=== PATIENT | male | born 1935 | race Caucasian/White ===

== ENCOUNTER → 2019-11-21 | Outpatient (CLI) | payer MEDICARE ==
--- NOTE | 2019-11-21 15:46 | REP ---
REASON: Rib "sprain". The accompanying frontal view of the chest is within normal limits. There are no priors for comparison. The heart size is borderline. Four views of the right ribs shows a possible fracture of the distal aspect of the 7th rib. This is in the possible category since it is suggested on one view only. IMPRESSION: Possible 7th rib fractures as described above. Electronically Signed by Jorge Luis Andrade DO 11/21/2019 05:14 P
== END ==
LOC: M WUC 11:24
PROVIDERS: ATTEND Nurse Practitioner Family
DX: S23.41XA Sprain of ribs, initial encounter (principal); X58.XXXA Exposure to other specified factors, initial encounter; Y92.89 Other specified places as the place of occurrence of the external cause